=== PATIENT | female | born 1985 | race Caucasian/White ===

== ENCOUNTER 2017-03-04 11:16 | Emergency (ER) | payer MEDICAID, OTHER ==
[~2017-03-04] VITALS: Ht 153.7 cm; Wt 59.4 kg
[2017-03-04 11:34] VITALS: BP 130/85
--- NOTE | 2017-03-04 16:24 | NUR ---
CALLED PT TO ROOM TWICE. PATIENT LEFT WITHOUT BEING SEEN BY DR. MCGILL. NO FURTHER CARE PROVIDED FOR PATIENT.
== END 2017-03-04 16:24 | disposition left against medical advice (07) ==
LOC: MED 11:16
DX: R51 Headache (principal); Z53.21 Procedure and treatment not carried out due to patient leaving prior to being seen by health care provider